=== PATIENT | male | born 1930 | race Hispanic/Latino ===

== ENCOUNTER 2016-09-23 06:38 | Day surgery (SDC) | payer MEDICARE, OTHER ==
[~2016-09-23 06:38] MED LIST: NACL 0.9% 1000 ML 1,000 ML IV SCH; VANCOMYCIN/NS 1 GM/250 ML 1 GM/250 ML BAG IV NR
[2016-09-23 08:05] LABS: Basophils % (Auto) 1.1 % (0.0-1.8); Eosinophils % (Auto) 1.6 % (0.0-4.3); Hematocrit 45.9 % (35.5-45.6); Hemoglobin 15.2 gm/dl (11.8-15.2); Mean Corpuscular HGB Conc 33 % (32-34); Mean Corpuscular Hemoglobin 30 pg (28-32); Mean Corpuscular Volume 91 fl (84-94); Red Blood Count 5.07 M/mm3 (3.65-5.03); Red Cell Distribution Width 15.4 % (13.2-15.2); White Blood Count 8.6 K/mm3 (4.5-11.0)
[2016-09-23 08:15] LABS: INR 1.19 (0.87-1.13); Partial Thromboplastin Time 27.5 Sec. (24.2-36.6)
[2016-09-23 08:20] LABS: Anion Gap 14 mmol/L; BUN/Creatinine Ratio 16.66; Blood Urea Nitrogen 15 mg/dL (9-20); Carbon Dioxide 26 mmol/L (22-30); Chloride 99.6 mmol/L (98-107); Glucose 124 mg/dL (75-100); Potassium 3.8 mmol/L (3.6-5.0); Sodium 136 mmol/L (137-145)
--- NOTE | 2016-09-23 09:02 | Anesthesia Consultation ---
Anesthesia Consult and Med Hx Date of service: 08/23/16 - Airway Anesthetic Teeth Evaluation: Poor (many missing some on bottom) ROM Head & Neck: Adequate Mental/Hyoid Distance: Adequate Mallampati Class: Class II Intubation Access Assessment: Possibly Difficult (could see fine - but may need Mac 4) - Pre-Operative Health Status ASA Pre-Surgery Classification: ASA3 Proposed Anesthetic Plan: MAC - Pulmonary Hx Smoking: Yes - Cardiovascular System Hx Hypertension: Yes Hx Heart Attack/AMI: No (poor circulation in left leg - poss stent placement) Hx Angina: No (poss TIA - family not aware ) - Central Nervous System Hx Neuromuscular Disorder: No (has had Left hip surgery) Hx Psychiatric Problems: No - Other Systems Hx Cancer: Yes (esophageal cancer)
--- NOTE | 2016-09-23 09:03 | Anesthesia Day of Surgery ---
Anesthesia Day of Surgery - Day of Surgery Patient Examined: Yes Patient H&P Reviewed: Yes Patient is NPO: Yes
[2016-09-23 09:12] LABS: Platelet Count 193 K/mm3 (140-440)
[2016-09-23] MEDS ORDERED: SUBLIMAZE ONE (09:27)
[2016-09-23] MEDS ORDERED: DIPRIVAN 10 MG/ML IV ONE ×3 (09:27)
[2016-09-23] MEDS ORDERED: VERSED ONE (09:27)
[2016-09-23] MEDS ORDERED: HEPARIN 10,000 UNITS/10 ML ONE (09:40)
[2016-09-23] MEDS ORDERED: XYLOCAINE 2% INFILTRATI ONE (09:40)
[2016-09-23] MEDS ORDERED: HEPARIN/NS 5000 UNIT/500ML(CATH LAB) 1,000 ML IR ONE (09:40)
[2016-09-23] MEDS ORDERED: TRIDIL DRIP 50MG/250ML 0 MG/0 ML BOTTLE ONE (09:56)
[2016-09-23] MEDS ORDERED: CALAN ONE (09:57)
[2016-09-23] MEDS ORDERED: NACL 0.9% 1000 ML 0 ML ONE (09:57)
[2016-09-23] MEDS ORDERED: NACL 0.9% 1000 ML 1,000 ML IV SCH (12:00)
--- NOTE | 2016-09-23 12:17 | Operative Report ---
Operative Report Operative Report: Procedure: Left lower extremity arteriography. History/Indication: This is an 86-year-old male with a several week history of left foot pain, and several nonhealing wounds at the tips of his left toes and interspaces. Noninvasive testing showed stenosis in the left superficial femoral artery and occlusion in the below-knee vessels.. Impression: 1. 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 2. Reconstitution of the posterior tibial artery and peroneal artery at the mid calf level, via collateral vessels. 3. The predominant supply to the left foot is the posterior tibial artery. Physician: Sophie Michaels M.D. Technique/Procedural Details: The patient was placed in the supine position on the procedure table. The patient was then prepped and draped in the usual sterile fashion. A timeout was performed. After administration of local anesthetic, the right common femoral artery was accessed under ultrasound guidance with a 21-gauge needle. This was exchanged over a mandrel wire via a 4 [place]ijian exchange dilator, for a glide advantage wire. An Omni flush 4 Fijian catheter was advanced into the aorta, and angiography was performed. The glide and Omni flush catheter were used to traverse the aortic bifurcation into the left common iliac artery, and angiography was again performed. The Omni flush catheter was exchanged for a 4 [place]ian vertebral catheter, and repeat angiography of the left lower extremity, down to the level of the foot was sequentially performed. The vertebral catheter was exchanged for a 6 [place]ian 45 cm [place] destination sheath. Through this sheath, a combination of of a V18 wire and 018 Trailblazer catheter were used to attempt to traverse the tibial vessels. After extensive effort to gain access into the true lumen of any of the tibial vessels proved unsuccessful, the wire, catheter, and sheath were removed. The arteriotomy was closed with an Angio-Seal closure device. Sterile dressings were applied, and the patient was transported back to the recovery area in stable condition. Discussion: As above, there is chronic appearing total occlusion of the left lower extremity vessels, spanning the mid SFA down to the mid calf. The aorta and common iliac arteries appear normal bilaterally. The external iliac and profunda artery on the left appear within normal limits. The superficial femoral artery is patent for only 2-3 cm before it is not visualized and gives rise to multiple collaterals. The left anterior tibial artery can be faintly visualized at its origin, but it is occluded in its mid and distal aspects. The tibial peroneal trunk is occluded, along with the proximal and mid peroneal and posterior tibial arteries. There is reconstitution of the peroneal and posterior tibial artery via collateral vessels at the mid calf level. The predominant supply to the foot is via the posterior tibial artery. As multiple attempts to traverse the tibial vessels were unsuccessful, the procedure was aborted. There will be a planned combined posterior tibial pedal access and antegrade access for next , 09/30/2016. This was explained in detail to the patient's family, who are amenable to this plan. Specimen: None EBL: 5-10 mL
[2016-09-23 14:37] VITALS: BP 174/90
--- NOTE | 2016-09-23 16:44 | Vascular Lab Report ---
MISCELLANEOUS VESSEL IDENTIFICATION: COMMENTS ON THE SCAN: The right common femoral artery was identified and under real-time ultrasound guidance was cannulated. IMPRESSION: Successful ultrasound guided arterial cannulation.
== END 2016-09-23 14:49 | disposition home or self-care (01) ==
LOC: OPU 06:38 → CATH 06:38 → OPU 14:49
PROVIDERS: ATTEND Internal Medicine Cardiovascular Disease
DX: I70.245 Atherosclerosis of native arteries of left leg with ulceration of other part of foot (principal); E11.9 Type 2 diabetes mellitus without complications; I10 Essential (primary) hypertension; Z85.01 Personal history of malignant neoplasm of esophagus; Z86.73 Personal history of transient ischemic attack (TIA), and cerebral infarction without residual deficits; F17.210 Nicotine dependence, cigarettes, uncomplicated
CPT/HCPCS: 36247; 36415; 75625; 75710; 76937; 80048; 82962; 85025; 85610; 85730; 96365; 96366; C1725; C1760; C1769; C1887; J1644; J2250; J2704; J3010; J3370; J7030; Q9967

== ENCOUNTER 2016-09-30 09:08 | Day surgery (SDC) | payer MEDICARE, OTHER ==
[2016-09-30] MEDS ORDERED: HEPARIN/NS 5000 UNIT/500ML(CATH LAB) 1,000 ML IR ONE (10:11)
[2016-09-30] MEDS ORDERED: XYLOCAINE 2% INFILTRATI ONE (10:12)
[2016-09-30] MEDS: VERSED ONE ×2 (10:51→12:06)
[2016-09-30] MEDS: SUBLIMAZE ONE ×4 (10:51→14:20)
[2016-09-30] MEDS ORDERED: CALAN ONE ×2 (10:57→11:15)
[2016-09-30] MEDS ORDERED: NITROGLYCERIN SYRINGE 3 ML ONE ×2 (10:57→12:09)
[2016-09-30] MEDS ORDERED: NACL 0.9% 500 ML 500 ML IV SCH (11:00)
[2016-09-30] MEDS: HEPARIN 10,000 UNITS/10 ML ONE ×6 (11:12→15:04)
[2016-09-30] MEDS ORDERED: NACL 0.9% 1000 ML 0 ML ONE (11:15)
[2016-09-30] MEDS ORDERED: TRIDIL DRIP 50MG/250ML 0 MG/0 ML BOTTLE ONE (11:15)
[2016-09-30] MEDS ORDERED: HEPARIN/NS 5000 UNIT/500ML(CATH LAB) 500 ML IR ONE ×2 (11:25→13:08)
[2016-09-30] MEDS ORDERED: BABY ASPIRIN ONE (15:40)
[2016-09-30] MEDS ORDERED: NITRO-BID 2% TP ONE (15:41)
--- NOTE | 2016-09-30 16:23 | Operative Report ---
Operative Report Operative Report: Procedure: 1. Left lower extremity arteriography with both antegrade and posterior tibial retrograde access. 2. Balloon angioplasty of the left femoral and popliteal arteries. 3. Balloon angioplasty of the left posterior tibial artery. 4. Drug-coated balloon angioplasty of the femoral and popliteal arteries. 5. Deployment of an Angio-Seal closure device in the right common femoral artery. History/Indication: This is an 86-year-old male with progressive ischemia of his left toes. He initially presented with a purple left great toe, and this has now progressed to multiple purple/black toes. Arteriography was performed last week, and based upon imaging at that time, the decision was made to bring the patient back today for both antegrade and retrograde access (CART). Physician: Sophie Michaels MD Technique/Procedural Details: Informed consent was obtained. The patient was placed in the supine position on the procedure table. Preliminary sonography of the distal left posterior tibial artery was performed, and images were acquired. The patient was then prepped and draped in the usual sterile fashion. Using a 21-gauge micropuncture needle, under direct ultrasound guidance, the posterior tibial artery at the level of the ankle was accessed, and a V 18 wire and 018 [place] Blazer catheter were advanced into the mid posterior tibial artery. Posterior tibial arteriography was performed. Attention was then turned to the right groin. The right common femoral artery was accessed in an antegrade fashion, under direct ultrasound guidance. A 5 [place] sheath was placed, and an Omni flush catheter was advanced into the aorta. Aortography was performed. A glide advantage wire was used to cross the aortic bifurcation into the left common iliac artery. The Omni flush catheter was exchanged for a vertebral catheter. Arteriography of the left common iliac, external iliac, common femoral, superficial femoral, and popliteal arteries was performed sequentially. The Omni flush catheter was removed, and a [place] destination 6 [place] x 45 cm sheath was placed. A combination of a glide advantage wire/vertebral catheter and a V18/[place] Blazer catheter were used to traverse into the distal popliteal artery. The the [place] Blazer was then exchanged for a vertebral catheter. The [place] Blazer catheter and V 18 wire from the retrograde posterior tibial access were used to cannulate the vertebral catheter. The V 18 wire was advanced through the vertebral catheter and a retrograde fashion, until the proximal aspect protruded from the proximal catheter opening (CART method). Over the V 18 wire, sequential balloon angioplasty of the posterior tibial artery, popliteal artery, and femoral artery was performed using a [place] Plus 2.5 mm, 4 mm, and 5 mm balloon respectively. Repeat arteriography was performed. Thereafter, Lutonix drug-coated balloon's over inflated from the popliteal artery to the proximal femoral artery. All wires and catheters were removed from the posterior tibial artery access site and hemostasis was achieved with manual compression. The [place] sheath was removed from the right common femoral artery, and hemostasis was achieved with an Angio-Seal closure device. Sterile dressings were placed, and the patient was transported off the table in stable condition. Discussion: As before, there is occlusion of the superficial femoral artery, popliteal artery, and proximal posterior tibial artery. There is reconstitution of the distal posterior tibial artery with collateral vessels. After balloon angioplasty, there was significant recanalization of all the treated vessels. However, on angiography there is still severe irregularity and filling defects throughout the left lower extremity vasculature, albeit markedly improved. It is likely this patient will need stents in order to maintain patency of the treated vessels. It was decided to not proceed with orbital atherectomy, as it was not possible to determine which points the wires were subintimal and within the true-lumen, due to the severity of the pre-existing occlusion. He will return in 2 weeks for a repeat assessment and evaluation for stent placement. Upon removal of the posterior tibial access sheath, there was brisk, pulsatile flow noted. EBL: 10 cc
--- NOTE | 2016-09-30 17:17 | Vascular Lab Report ---
MISCELLANEOUS VESSEL IDENTIFICATION: COMMENTS ON THE SCAN: The left posterior tibial artery was identified and under real-time ultrasound guidance was cannulated. IMPRESSION: Successful ultrasound guided arterial cannulation.
--- NOTE | 2016-09-30 17:17 | Vascular Lab Report ---
[id number] MISCELLANEOUS VESSEL IDENTIFICATION: COMMENTS ON THE SCAN: The right common femoral artery was identified and under real-time ultrasound guidance was cannulated. IMPRESSION: Successful ultrasound guided arterial cannulation.
[2016-09-30 18:02] VITALS: BP 143/83
== END 2016-09-30 18:00 | disposition home or self-care (01) ==
LOC: OPU 09:08
PROVIDERS: ATTEND Radiology Diagnostic Radiology
DX: I70.262 Atherosclerosis of native arteries of extremities with gangrene, left leg (principal); I10 Essential (primary) hypertension; E11.9 Type 2 diabetes mellitus without complications; F17.210 Nicotine dependence, cigarettes, uncomplicated; Z79.899 Other long term (current) drug therapy; Z85.01 Personal history of malignant neoplasm of esophagus; Z86.73 Personal history of transient ischemic attack (TIA), and cerebral infarction without residual deficits
CPT/HCPCS: 36140; 37224; 37228; 75625; 75658; 76937; 82962; C1725; C1760; C1769; C1887; C2623; J1644; J2250; J3010; J3370; J7030; J7040; Q9967